=== PATIENT | male | born 2000 | race Caucasian/White ===

== ENCOUNTER 2021-05-23 11:15 | Emergency (ER) | payer OTHER ==
[~2021-05-23] VITALS: Ht 180.3 cm; Wt 70.5 kg
[2021-05-23 11:41] VITALS: BP 158/87; PULSE 102; TEMP 98.3
[2021-05-23 12:55] LABS: BASO % 0.4 % (0.0-2.0); EOS # 0.1 (0.0-0.7); EOS % 0.7 % (0-4.0); GRAN # 7.2 (1.4-6.5); GRAN % 77.3 % (42.2-75.2); HEMATOCRIT 44.6 % (36.0-47.0); HEMOGLOBIN 15.8 g/dl (12.5-16.1); LYMPH # 1.4 (1.2-3.4); LYMPH % 15.1 % (20.0-51.0); MEAN CELL VOLUME 86 fl (80.0-95.0); MEAN CORPUSCULAR HEMOGLOBIN 30 pg (26.0-32.0); MEAN CORPUSCULAR HGB CONC 35 g/dl (33.0-37.0); MEAN PLATELET VOLUME 8.9 fl (7.4-10.4); MONO # 0.6 (0.1-0.6); MONO % 6.2 % (1.7-9.3); PLATELET COUNT 244 K/mm3 (130-400); RED BLOOD COUNT 5.21 M/mm3 (4.20-5.60); REDCELL DISTRIBUTION WIDTH-CV 12.7 % (11.5-14.5)
[2021-05-23 13:08] LABS: COLLECTION METHOD CLEAN CATCH
[2021-05-23 13:15] LABS: ACETAMINOPHEN < 1.0 ug/mL (10-30); ALANINE AMINOTRANSFERASE 21 U/L (0-55); ALBUMIN 4.5 gm/dL (3.5-5.0); ALCOHOL(ethanol),MEDICAL 15 mg/dL (0-10); ALKALINE PHOSPHATASE 84 U/L (0-750); ANION GAP 15 mmol/L (7-16); AST,SGOT 37 U/L (5-34); BLOOD UREA NITROGEN 9 mg/dL (8-21); CALCIUM 9.4 mg/dL (8.4-10.2); CARBON DIOXIDE 22 mmol/L (22-29); CHLORIDE 106 mmol/L (98-107); CREATININE, serum 0.94 mg/dL (0.72-1.25); GLUCOSE 84 mg/dL (70-99); POTASSIUM 4.1 mmol/L (3.5-4.5); SALICYLATE < 5.0 mg/dL (15.0-30.0); SODIUM 143 mmol/L (136-145); TOTAL PROTEIN 7.5 gm/dL (6.2-8.1)
[2021-05-23 13:19] LABS: MUCOUS Present /lpf; PH 6 (5-8); SQUAMOUS EPITHELIAL None Seen /hpf; URINE APPEARANCE Clear; URINE BACTERIA None Seen /hpf; URINE BILIRUBIN Negative (NEGATIVE); URINE BLOOD Negative (NEGATIVE); URINE COLOR Yellow; URINE GLUCOSE Negative (NEGATIVE); URINE KETONE Trace (NEGATIVE); URINE LEUKOCYTE ESTERASE Negative (NEGATIVE); URINE NITRATE Negative (NEGATIVE); URINE PROTEIN(semi-quant) Negative (NEGATIVE); URINE RBC 0-2 /hpf
[2021-05-23 13:26] LABS: TRICYCLIC ANTIDEPRESS URINE NEGATIVE
== END 2021-05-23 15:15 | disposition left against medical advice (07) ==
LOC: COL.ER 11:15
PROVIDERS: Family Medicine
DX: S60.221A Contusion of right hand, initial encounter (principal); F32.9 Major depressive disorder, single episode, unspecified; W22.09XA Striking against other stationary object, initial encounter